=== PATIENT | male | born 1985 | race Caucasian/White ===

== ENCOUNTER 2020-12-05 15:43 | Emergency (ER) | payer OTHER ==
[2020-12-05 16:05] VITALS: BP 133/82; PULSE 90; TEMP 98.2; BMI 29.0
[2020-12-05] MEDS ORDERED: DIPHTH,PERTUSS(ACELL),TET 0.5 ML DISP.SYRIN IM ONE ×2 (16:27→16:29)
[2020-12-05] MEDS ORDERED: NAPROXEN 375 MG TABLET PO ONE (16:27)
[2020-12-05] MEDS ORDERED: NAPROXEN 375 MG TABLET ONE (16:29)
== END 2020-12-05 17:36 | disposition home or self-care (01) ==
LOC: FER 15:43
PROC: 3E0234Z Introduction of Serum, Toxoid and Vaccine into Muscle, Percutaneous Approach (ICD-10-PCS; principal; 2020-12-05)
DX: S61.212A Laceration without foreign body of right middle finger without damage to nail, initial encounter (principal); W26.0XXA Contact with knife, initial encounter; Y93.G1 Activity, food preparation and clean up; Y92.511 Restaurant or cafe as the place of occurrence of the external cause
CPT/HCPCS: 73140-TC-RT-FY; 90715; 99284-25